=== PATIENT | male | born 1970 | race Caucasian/White ===

== ENCOUNTER 2023-06-18 08:24 | Emergency (ER) | payer OTHER ==
[2023-06-18] MEDS ORDERED: Metoprolol Tartrate 5 MG in Sodium Chloride 0.9% 50 ML IV ONE (08:48)
[2023-06-18 08:53] LABS: BASOPHILS ABSOLUTE AUTO 0.05 K/uL (0.00-0.20); BASOPHILS PERCENT AUTO 0.5 % (0.0-1.0); EOSINOPHILS ABSOLUTE AUTO 0.09 K/uL (0.00-0.45); HEMATOCRIT 52.3 % (42.0-52.0); HEMOGLOBIN 17.6 g/dL (14.0-18.0); IMMATURE GRAN ABSOLUTE AUTO 0.03 K/uL (0.00-0.05); IMMATURE GRAN PERCENT AUTO 0.3 % (0.0-0.4); LYMPHOCYTES ABSOLUTE AUTO 1.84 K/uL (1.00-4.80); LYMPHOCYTES PERCENT AUTO 19.6 % (24.0-44.0); MEAN CORPUSCULAR HGB CONC 33.7 g/dL (32.0-36.0); MEAN CORPUSCULAR VOLUME 89.2 fL (83.0-99.0); MEAN PLATELET VOLUME 8.9 fL (9.4-12.4); MONOCYTES ABSOLUTE AUTO 0.68 K/uL (0.00-0.80); MONOCYTES PERCENT AUTO 7.2 % (0.0-8.0); NEUTROPHILS ABSOLUTE AUTO 6.72 K/uL (1.80-7.70); NEUTROPHILS PERCENT AUTO 71.4 % (41.0-71.0); PLATELET COUNT,PLT 268 K/uL (150-400); RED BLOOD CELL COUNT 5.86 M/uL (4.52-5.90); WHITE BLOOD CELL COUNT,WBC 9.41 K/uL (3.9-11.3)
[2023-06-18] MEDS: Metoprolol Tartrate 5 MG/5 ML SDV IVPUSH ONE ×2 (08:55→09:13)
[2023-06-18] MEDS: Sodium Chloride 0.9% 10 ML Syringe FLUSH PRN (08:55)
[2023-06-18] MEDS: Sodium Chloride 0.9% 2.5 ML Syringe FLUSH PRN (08:55)
[2023-06-18] MEDS: Sodium Chloride 0.9% 500 ML IV STA (09:41)
[2023-06-18 09:42] LABS: A/G RATIO 1.2 (0.9-1.6); ALBUMIN 3.8 g/dL (3.4-5.0); BILIRUBIN TOTAL 2.8 mg/dL (0.2-1.0); CALCIUM 9.5 mg/dL (8.5-10.1); CARBON DIOXIDE,CO2 22.5 mmol/L (21.0-32.0); CREATININE 1.8 mg/dL (0.8-1.3); POTASSIUM,K 4.8 mmol/L (3.5-5.1); PROTEIN TOTAL,TP 7.1 g/dL (6.4-8.2); TSH ULTRASENSITIVE 3.32 uIU/mL (0.36-3.74)
[2023-06-18] MEDS: Iopamidol 755 MG/ML 500 ML Multipack Bottle IVPUSH STA (10:14)
[2023-06-18] MEDS: Aspirin 81 MG Tab.EC PO SCH (11:09)
[2023-06-18] MEDS: Aspirin 81 MG Tab.Chew PO ONE (11:12)
[2023-06-18] MEDS: Furosemide 40 MG/4 ML VIAL IVPUSH ONE (11:59)
== END 2023-06-18 13:40 ==
LOC: MW.ED 08:24
DX: I48.92 Unspecified atrial flutter (principal); I50.9 Heart failure, unspecified; N17.9 Acute kidney failure, unspecified; Z75.8 Other problems related to medical facilities and other health care; Z91.048 Other nonmedicinal substance allergy status; Z79.899 Other long term (current) drug therapy
CPT/HCPCS: 36415; 71045; 71275; 80053; 83605; 83880; 84443; 84484; 85025; 85379; 93005; 96374; 96375; 99285; A9270; J1940; J3490; J7030; Q9967; 93010; 99291

== ENCOUNTER 2024-04-07 13:06 | Emergency (ER) | payer OTHER | END 2024-04-07 18:49 | disposition home or self-care (01) | LOC: MW.ED 13:06 | DX: M25.462 Effusion, left knee (principal); J45.909 Unspecified asthma, uncomplicated; Z91.048 Other nonmedicinal substance allergy status; Z79.51 Long term (current) use of inhaled steroids; Z79.01 Long term (current) use of anticoagulants; Z79.899 Other long term (current) drug therapy; Z75.8 Other problems related to medical facilities and other health care | CPT/HCPCS: 73562-26-LT; 73562-LT; 93970; 93971-26-LT; 93971-LT; 99284 ==